=== PATIENT | female | born 1955 | race Two or more races ===

== ENCOUNTER → 2017-01-09 | Outpatient (CLI) | payer OTHER ==
[~2017-01-09] MED LIST: ACET325T14 PO; DEXA2TAB PO; DIAZ5TAB PO; DOXE25CA PO; FENT1PAT77 TD; GABA600T2 PO; LINE600T37 PO; MUPI22OI2 NAS; NIFE30TA2 PO; OXYC5CAP4 PO; PRED5TAB PO; PROM12.553 RC; [UNRECOGNIZED DRUG - CODE]; [UNRECOGNIZED DRUG - OTHER]; [UNRECOGNIZED DRUG - OTHER] PO; phenergan supp
== END | disposition home or self-care (01) ==
LOC: RAD 13:42
PROVIDERS: ATTEND Neurological Surgery
DX: S32.038A Other fracture of third lumbar vertebra, initial encounter for closed fracture (principal); M43.26 Fusion of spine, lumbar region; M41.86 Other forms of scoliosis, lumbar region; M41.82 Other forms of scoliosis, cervical region; M50.31 Other cervical disc degeneration, high cervical region; X58.XXXA Exposure to other specified factors, initial encounter; Y93.89 Activity, other specified; Y92.89 Other specified places as the place of occurrence of the external cause; Y99.8 Other external cause status
CPT/HCPCS: 72050; 72072; 72110; 72131; 72192

== ENCOUNTER → 2017-08-19 | Outpatient (CLI) | payer OTHER ==
[~2017-08-19] MED LIST changes: +OXYC5CAP2 PO; -OXYC5CAP4 PO
== END | disposition home or self-care (01) ==
LOC: CFH 15:34
PROVIDERS: ATTEND Internal Medicine
DX: Z12.31 Encounter for screening mammogram for malignant neoplasm of breast (principal)
CPT/HCPCS: G0202